=== PATIENT | male | born 1930 | race African-American/Black ===

== ENCOUNTER → 2017-05-17 | Outpatient (CLI) | payer MEDICARE ==
[~2017-05-17] MED LIST: DICYCLOMINE HCL10 MG PO; IOPAMIDOL 370 MG/ML 200 ML INFUS..BTL INJ ONE; LOSARTAN-HCTZ1 EAC1 PO; SODIUM CHLORIDE 0.9% 250ML 500 ML ONE; SODIUM CHLORIDE 0.9% 50ML 50 ML ONE; TAMSULOSIN HCL0.4 MG PO
[2017-05-17 09:10] LABS: CREATININE, SERUM 2.1 mg/dL (0.72-1.25)
--- NOTE | 2017-05-17 13:56 | Diagnostic Imaging Report ---
PROCEDURE: CTA ABD/PEL/BILATERAL LOWER EXT RUNOFF W \T\ W/O CONTRAST COMPARISON:None. INDICATIONS:Peripheral arterery disease TECHNIQUE: Multi-detector CT technology with Dose Reduction was employed. Images were obtained after the administration of 100 cc of Omnipaque 350 intravenously. For optimization of anatomic evaluation, multiplanar and volume rendering reconstructions were performed. Advanced 3-D off-line postprocessing were performed on a dedicated stand-alone workstation under the direct supervision of the interpreting physician. FINDINGS: Abdominal aorta and iliac vessels: Scattered atherosclerotic changes are present throughout the abdominal aorta and bilateral lower extremity runoff. Minimal amount of plaque is noted around the origins of the great vessels. The superior mesenteric, inferior mesenteric, and celiac arteries are patent. 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 The left renal artery is patent. The common, internal, and external iliac arteries are patent bilaterally. Femoral-popliteal vessels: The right common femoral artery is occluded. The right profunda femoral artery is occluded at the origin. Reconstitution of the right profunda femoral artery is visualized from branches of the right internal iliac artery, series 3 image 100. The right superficial femoral artery is occluded from the origin to the abductor canal. Reconstitution of the distal superficial femoral/popliteal artery is noted via circumflex collaterals, series 3 image 184. The left common and profunda femoral arteries are patent. The left superficial femoral artery is occluded from the origin to the distal above the knee popliteal artery, series 3 image 194. Infrapopliteal vessels: The [id number]-[id number] popliteal arteries are patent bilaterally. The anterior tibial, posterior tibial, and peroneal arteries are patent. Patent three vessel runoff is present in the feet bilaterally. Abdominal and Pelvic soft-tissues and organs: Lung bases: No focal consolidation or parenchymal mass. No pleural effusion or pneumothorax. Liver: Normal parenchyma. No focal mass. Biliary: Normal gallbladder. No intrahepatic or extrahepatic biliary duct dilation. Spleen: No splenomegaly. No focal mass. Several coarse calcifications are present in the spleen. Pancreas: Normal enhancement. No pancreatic duct dilation. No focal mass or peripancreatic soft tissue inflammatory changes. Partial fatty replacement of the pancreas. Adrenal Glands: The adrenal glands are prominent bilaterally, without a focal nodule identified. Kidneys: No obstructing calculi, hydronephrosis, or solid mass. Decreased parenchymal perfusion of the anterior distribution of the right kidney. GI: The stomach, small bowel, and colon are unremarkable. No air-fluid levels. Normal appendix. A moderate amount of retained feces limits intraluminal evaluation of the colon. Peritoneum/Retroperitoneum: No pneumoperitoneum or free intraperitoneal fluid. No lymphadenopathy. No drainable fluid collection. Reproductive Organs: Normal. Musculoskeletal: No acute sclerotic or lucent lesion. Degenerative changes of the lumbar spine. 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 Perfusion changes of the anterior distribution of the right kidney, consistent with chronic distal renal artery atherosclerotic disease. Dictated by: Jose Ledezma M.D. on 05/17/2017 at 13:56 Electronically approved by: Jose Ledezma M.D. on 05/17/2017 at 13:56
== END ==
LOC: CT 08:02
PROVIDERS: ATTEND Thoracic Surgery (Cardiothoracic Vascular Surgery)
DX: I73.9 Peripheral vascular disease, unspecified (principal)
CPT/HCPCS: 36415; 75635; 82565; 84520; J7050; Q9967

== ENCOUNTER → 2017-06-01 | Outpatient (CLI) | payer MEDICARE ==
[~2017-06-01] MED LIST changes: -IOPAMIDOL 370 MG/ML 200 ML INFUS..BTL INJ ONE; -SODIUM CHLORIDE 0.9% 250ML 500 ML ONE; -SODIUM CHLORIDE 0.9% 50ML 50 ML ONE
--- NOTE | 2017-06-01 09:10 | Diagnostic Imaging Report ---
PROCEDURE:HAND RIGHT 3 VIEWS TECHNIQUE:AP, lateral and oblique views right hand INDICATION:Right hand pain COMPARISON:None. FINDINGS: Mild interphalangeal joint space narrowing and sclerosis. No erosion or periosteal reaction. Normal bone mineralization. Regional soft tissues are normal. CONCLUSION: Mild osteoarthritic degenerative changes. No acute abnormality. Dictated by: Evangelist Olvera M.D. on 06/01/2017 at 9:08 Electronically approved by: Evangelist Olvera M.D. on 06/01/2017 at 9:08
== END ==
LOC: RAD 08:22
PROVIDERS: ATTEND Family Medicine
DX: M79.641 Pain in right hand (principal)

== ENCOUNTER → 2018-08-09 | Day surgery (SDC) | payer MEDICARE ==
[2018-08-08 17:29] LABS: BASOPHILS # (AUTO) 0.1 (0.0-0.1); BASOPHILS % 0.8 % (0.0-1.0); EOSINOPHILS # (AUTO) 0.4 (0.0-0.4); EOSINOPHILS % 5.3 % (0.0-6.0); HEMATOCRIT 42.3 % (38.2-49.6); HEMOGLOBIN 13.4 g/dL (14.0-18.0); LYMPHOCYTES # (AUTO) 2.8 (1.0-3.2); LYMPHOCYTES % 41.8 % (18.0-39.1); MEAN CORPUSCULAR HEMOGLOBIN 31.2 pg (28-32); MEAN CORPUSCULAR HGB CONC 31.7 g/dL (31-35); MEAN CORPUSCULAR VOLUME 98.4 fL (81-99); MONOCYTES # (AUTO) 0.7 (0.2-0.8); MONOCYTES % 10.6 % (4.4-11.3); NEUTROPHILS # (AUTO) 2.8 (2.1-6.9); NEUTROPHILS % 41.3 % (38.7-80.0); PLATELET COUNT 155 x10e3/uL (140-360)
[2018-08-08 18:33] LABS: EOSINOPHILS % (MANUAL) 8 % (0-7); LYMPHOCYTES % (MANUAL) 44 % (19-48); MONOCYTES % (MANUAL) 7 % (3.4-9.0); NEUTROPHILS % (MANUAL) 41 % (40-74); RBC MORPHOLOGY COMMENT NORMAL
[2018-08-08 18:34] LABS: PLATELET ESTIMATE ADEQUATE; PLATELET MORPHOLOGY COMMENT NORMAL
[~2018-08-09] MED LIST changes: +ATORVASTATIN CA20 MG PO; +BREO ELLIPTA INH; +GABAPENTIN300 MG PO; +HYDRALAZINE HCL 20 MG/ML VIAL ONE; +METOPROLOL TART25 MG PO; +PROPOFOL IV EMULSION 10 MG/ML 20 ML VIAL ONE; +RANITIDINE HCL300 M1 PO; +TERBINAFINE HC250 MG PO
--- OUTSIDE RECORDS SUMMARY | 2018-08-09 07:58 | XMS REPORT ---
Author Author [facility] Address Unknown Phone Unavailable Care Team Providers Care Enforcement Manager Name Role Phone MANJINDER LORENZO Unavailable Unavailable SHEFALI HARDY Unavailable Unavailable Problems This patient has no known problems. Allergies, Adverse Reactions, Alerts This patient has no known allergies or adverse reactions. Medications This patient has no known medications. Results Test Description Test Time Test Comments Text Results Atomic Results Result Comments HAND 3+ VIEWS RIGHT [place] [address] Patient Name: CONNIE PATTON MR #: [id number] : 1930 Age/Sex: 86/M Req #: [id number] [facility] Physician: Ordered by: MANJINDER LORENZO MD Report #: [id number] Location: [facility] Room/Bed: Procedure: [id number] DX/HAND 3+ VIEWS RIGHT Exam Date: 06/01/17 Exam Time: 0845 REPORT STATUS: Signed PROCEDURE: HAND RIGHT 3 VIEWS TECHNIQUE: AP, lateral and oblique views right hand INDICATION: Right hand pain COMPARISON: None. FINDINGS: Mild interphalangeal joint space narrowing and sclerosis. No erosion or periosteal reaction. Normal bone mineralization. Regional soft tissues are normal. CONCLUSION: Mild osteoarthritic degenerative changes. No acute abnormality. Dictated by: Keanu Olvera M.D. on 06/01/2017 at 9:08 Electronically approved by: Keanu Olvera M.D. on 06/01/2017 at 9:08 Dictated By: KEANU OLVERA MD 7 Transcribed By: SAMMY on 06/01/17907 COPY TO: MANJINDER LORENZO MD CTA ABD/PEL/RUN OFF [place] [address] Patient Name: CONNIE PATTON MR #: [id number] : 1930 Age/Sex: 86/M Req #: [id number] Adm Physician: Ordered by: SHEFALI HARDY MD Report #: [id number] Location: CT Room/Bed: Procedure: [id number] CT/CTA ABD/PEL/RUN OFF Exam Date: 05/17/17 Exam Time: 1000 REPORT STATUS: Signed PROCEDURE: CTA ABD/PEL/BILATERAL LOWER EXT RUNOFF W T W/O CONTRAST COMPARISON: None. INDICATIONS: Peripheral arterery disease TECHNIQUE: Multi-detector CT technology with Dose Reduction was employed. Images were obtained after the administration of 100 cc of Omnipaque 350 intravenously. For optimization of anatomic evaluation, multiplanar and volume rendering reconstructions were performed. Advanced 3-D off-line postprocessing were performed on a dedicated stand-alone workstation under the direct supervision of the interpreting physician. FINDINGS: Abdominal aorta and iliac vessels: Scattered atherosclerotic changes are present throughout the abdominal aorta and bilateral lower extremity runoff. Minimal amount of plaque is noted around the origins of the great vessels. The superior mesenteric, inferior mesenteric, and celiac arteries are patent. 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 The left renal artery is patent. The common, internal, and external iliac arteries are patent bilaterally. Femoral- popliteal vessels: The right common femoral artery is occluded. The right profunda femoral artery is occluded at the origin. Reconstitution of the right profunda femoral artery is visualized from branches of the right internal iliac artery, series 3 image 100. The right superficial femoral artery is occluded from the origin to the abductor canal. Reconstitution of the distal superficial femoral/popliteal artery is noted via circumflex collaterals, series 3 image 184. The left common and profunda femoral arteries are patent. The left superficial femoral artery is occluded from the origin to the distal above the knee popliteal artery, series 3 image 194. Infrapopliteal vessels: The [id number]-[id number]-[id number] popliteal arteries are patent bilaterally. The anterior tibial, posterior tibial, and peroneal arteries are patent. Patent three vessel runoff is present in the feet bilaterally. Abdominal and Pelvic soft-tissues and organs: Lung bases: No focal consolidation or parenchymal mass. No pleural effusion or pneumothorax. Liver: Normal parenchyma. No focal mass. Biliary: Normal gallbladder. No intrahepatic or extrahepatic biliary duct dilation. Spleen: No splenomega ly. No focal mass. Several coarse calcifications are present in the spleen. Pancreas: Normal enhancement. No pancreatic duct dilation. No focal mass or peripancreatic soft tissue inflammatory changes. Partial fatty replacement of the pancreas. Adrenal Glands: The adrenal glands are prominent bilaterally, without a focal nodule identified. Kidneys: No obstructing calculi, hydronephrosis, or solid mass. Decreased parenchymal perfusion of the anterior distribution of the right kidney. GI: The stomach, small bowel, and colon are unremarkable. No air-fluid levels. Normal appendix. A moderate amount of retained feces limits intraluminal evaluation of the colon. Peritoneum/Retroperitoneum: No pneumoperitoneum or free intraperitoneal fluid. No lymphadenopathy. No drainable fluid collection. Reproductive Organs: Normal. Musculoskeletal: No acute sclerotic or lucent lesion. Degenerative changes of the lumbar spine. 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 Perfusion changes of the anterior distribution of the right kidney, consistent with chronic distal renal artery atherosclerotic disease. Dictated by: Connie Marino M.D. on 05/17/2017 at 13:56 Electronically approved by: Connie Marino M.D. on 05/17/2017 at 13:56 Dictated By: CONNIE MARINO MD [id number] Transcribed By: SAMMY on 05/17/17 2947 COPY TO: SHEFALI HARDY MD
[2018-08-09 13:12] VITALS: BP 170/83
== END | disposition home or self-care (01) ==
LOC: OR 07:55
PROVIDERS: ATTEND Internal Medicine Gastroenterology
DX: K29.50 Unspecified chronic gastritis without bleeding (principal); K31.1 Adult hypertrophic pyloric stenosis; K21.0 Gastro-esophageal reflux disease with esophagitis; K44.9 Diaphragmatic hernia without obstruction or gangrene; K57.30 Diverticulosis of large intestine without perforation or abscess without bleeding; D64.9 Anemia, unspecified; E66.3 Overweight; Z71.3 Dietary counseling and surveillance; I12.9 Hypertensive chronic kidney disease with stage 1 through stage 4 chronic kidney disease, or unspecified chronic kidney disease; N18.9 Chronic kidney disease, unspecified; E78.5 Hyperlipidemia, unspecified; J45.909 Unspecified asthma, uncomplicated; Z01.810 Encounter for preprocedural cardiovascular examination; Z01.812 Encounter for preprocedural laboratory examination; Z79.82 Long term (current) use of aspirin; Z68.27 Body mass index [BMI] 27.0-27.9, adult; Z87.891 Personal history of nicotine dependence
CPT/HCPCS: 36415; 43239; 43245; 85025; 93005; J0360; J2704; 43450

== ENCOUNTER → 2019-03-28 | Day surgery (SDC) | payer MEDICARE ==
[2019-02-12 09:44] LABS: BASOPHILS % 0.5 % (0.0-1.0); EOSINOPHILS # (AUTO) 0.3 (0.0-0.4); EOSINOPHILS % 5.7 % (0.0-6.0); HEMATOCRIT 39.7 % (38.2-49.6); HEMOGLOBIN 12.6 g/dL (14.0-18.0); LYMPHOCYTES # (AUTO) 2.5 (1.0-3.2); LYMPHOCYTES % 42.1 % (18.0-39.1); MEAN CORPUSCULAR HEMOGLOBIN 31.3 pg (28-32); MEAN CORPUSCULAR HGB CONC 31.7 g/dL (31-35); MEAN CORPUSCULAR VOLUME 98.5 fL (81-99); MONOCYTES # (AUTO) 0.6 (0.2-0.8); MONOCYTES % 9.7 % (4.4-11.3); NEUTROPHILS # (AUTO) 2.5 (2.1-6.9); NEUTROPHILS % 41.8 % (38.7-80.0); PLATELET COUNT 159 x10e3/uL (140-360); RED BLOOD COUNT 4.03 x10e6/uL (4.3-5.7); RED CELL DISTRIBUTION WIDTH 12.7 % (11.7-14.4)
[~2019-03-28] MED LIST changes: -HYDRALAZINE HCL 20 MG/ML VIAL ONE; +HYDROCHLOROTHIA25 MG PO; +KETAMINE HCL INJ 50 MG/ML 10 ML VIAL ONE; +LIDOCAINE HCL 2% LOCAL INJ 5 ML SDV VIAL INJ ONE; +LOSARTAN POTASS25 MG PO; +PANTOPRAZOLE SO40 MG PO
[2019-03-28 10:08] LABS: BASOPHILS % 0.5 % (0.0-1.0); EOSINOPHILS # (AUTO) 0.1 (0.0-0.4); EOSINOPHILS % 2.1 % (0.0-6.0); HEMATOCRIT 40.8 % (38.2-49.6); HEMOGLOBIN 13.2 g/dL (14.0-18.0); LYMPHOCYTES # (AUTO) 2.2 (1.0-3.2); MEAN CORPUSCULAR HEMOGLOBIN 30.8 pg (28-32); MEAN CORPUSCULAR HGB CONC 32.4 g/dL (31-35); MEAN CORPUSCULAR VOLUME 95.1 fL (81-99); MONOCYTES # (AUTO) 0.7 (0.2-0.8); MONOCYTES % 10.5 % (4.4-11.3); NEUTROPHILS # (AUTO) 3.2 (2.1-6.9); NEUTROPHILS % 50.7 % (38.7-80.0); PLATELET COUNT 193 x10e3/uL (140-360); RED BLOOD COUNT 4.29 x10e6/uL (4.3-5.7); RED CELL DISTRIBUTION WIDTH 12.8 % (11.7-14.4)
[2019-03-28 12:10] VITALS: BP 180/86
== END | disposition home or self-care (01) ==
LOC: OR 09:01
PROVIDERS: ATTEND Internal Medicine Gastroenterology
DX: D64.9 Anemia, unspecified (principal); K57.30 Diverticulosis of large intestine without perforation or abscess without bleeding; K64.8 Other hemorrhoids; K21.9 Gastro-esophageal reflux disease without esophagitis; K44.9 Diaphragmatic hernia without obstruction or gangrene; Z71.3 Dietary counseling and surveillance; I10 Essential (primary) hypertension; E66.3 Overweight; J45.909 Unspecified asthma, uncomplicated; Z01.810 Encounter for preprocedural cardiovascular examination; Z01.812 Encounter for preprocedural laboratory examination; Z68.28 Body mass index [BMI] 28.0-28.9, adult
CPT/HCPCS: 36415 ×2; 45378; 85025 ×2; 93005; J2001; J2704

== ENCOUNTER → 2019-10-10 | Outpatient (CLI) | payer MEDICARE ==
[~2019-10-10] MED LIST changes: -KETAMINE HCL INJ 50 MG/ML 10 ML VIAL ONE; -LIDOCAINE HCL 2% LOCAL INJ 5 ML SDV VIAL INJ ONE; -PROPOFOL IV EMULSION 10 MG/ML 20 ML VIAL ONE
--- NOTE | 2019-10-10 19:00 | Diagnostic Imaging Report ---
Solid-phase gastric emptying study Reason for examination: Epigastric pain and bloating The protocol used for this study is based on the Consensus Recommendations for Gastric Scintigraphy by the [place] [employer] and the Society of [employer]. Clinical information: The patient is not diabetic. The patient has not had previous gastrointestinal surgery. The patient is not on any medications expected to affect gastric motility. The patient has been fasting for at least 6 hours prior to this exam. Radiopharmaceutical: Tc-99m sulfur colloid 1 mCi Report: The radiopharmaceutical was added to 1/2 cup egg whites that were then prepared and served with 2 pieces of white bread toasted, 30 grams of jam and 4 ounces of water. The patient took the meal orally without difficulty. Images were obtained of the abdomen in the anterior and posterior projections at 10 minutes post the meal and at 1, 2 and 3 hours. Uptake was determined from the geometric mean of the anterior and posterior counts and the counts were corrected for decay of the radiolabel. The percent gastric retention of the labeled meal at: 1 hour was 38% (normal 30-90%) 2 hours was 8% (normal <60%) 3 hours was 2% (normal <30%) 4 hour measurement not obtained because gastric retention was less than 10% at 3 hours. Impression: The pattern of gastric emptying is normal. The findings do not support the clinical diagnosis of gastroparesis. Signed by: Dr. Jelly Colby M.D. on 10/10/2019 6:57 PM
== END ==
LOC: NM 09:01
PROVIDERS: ATTEND Internal Medicine Gastroenterology
DX: R10.13 Epigastric pain (principal); R14.0 Abdominal distension (gaseous); K21.9 Gastro-esophageal reflux disease without esophagitis; K44.9 Diaphragmatic hernia without obstruction or gangrene; K31.1 Adult hypertrophic pyloric stenosis; K57.30 Diverticulosis of large intestine without perforation or abscess without bleeding; I10 Essential (primary) hypertension; E66.3 Overweight; Z71.3 Dietary counseling and surveillance; Z87.891 Personal history of nicotine dependence
CPT/HCPCS: 78264; A9541

== ENCOUNTER → 2019-12-07 | Outpatient (CLI) | payer MEDICARE, OTHER ==
[2019-12-07 13:17] LABS: BASOPHILS % 0.5 % (0.0-1.0); EOSINOPHILS # (AUTO) 0.3 (0.0-0.4); EOSINOPHILS % 4.4 % (0.0-6.0); HEMATOCRIT 36.9 % (38.2-49.6); HEMOGLOBIN 11.4 g/dL (14.0-18.0); LYMPHOCYTES # (AUTO) 2.6 (1.0-3.2); LYMPHOCYTES % 39.6 % (18.0-39.1); MEAN CORPUSCULAR HEMOGLOBIN 30.4 pg (28-32); MEAN CORPUSCULAR HGB CONC 30.9 g/dL (31-35); MEAN CORPUSCULAR VOLUME 98.4 fL (81-99); MONOCYTES # (AUTO) 0.7 (0.2-0.8); NEUTROPHILS # (AUTO) 2.9 (2.1-6.9); NEUTROPHILS % 44.3 % (38.7-80.0); PLATELET COUNT 178 x10e3/uL (140-360); RED BLOOD COUNT 3.75 x10e6/uL (4.3-5.7); RED CELL DISTRIBUTION WIDTH 12.6 % (11.7-14.4)
== END ==
LOC: DX 14:47 → EDSTATUS 12-12 11:00
PROVIDERS: ATTEND Internal Medicine Gastroenterology
DX: Z01.818 Encounter for other preprocedural examination (principal); K40.90 Unilateral inguinal hernia, without obstruction or gangrene, not specified as recurrent; Z11.59 Encounter for screening for other viral diseases
CPT/HCPCS: 36415; 85025; 93005; U0002

== ENCOUNTER → 2020-07-15 | Outpatient (CLI) | payer MEDICARE ==
[~2020-07-15] MED LIST changes: +IOPAMIDOL 370 MG/ML 200 ML INFUS..BTL INJ ONE; +SODIUM CHLORIDE 0.9% 100 ML ONE; +SODIUM CHLORIDE 0.9% 500ML 500 ML ONE; +SODIUM CHLORIDE 0.9% 50ML 0 ML ONE
[2020-07-15 13:44] LABS: BLOOD UREA NITROGEN 18 mg/dL (7-26); BUN/CREATININE RATIO 8 (6-25); CREATININE, SERUM 2.38 mg/dL (0.72-1.25); EST GLOMERULAR FILTRATION RATE 31 ML/MIN (60-)
[2020-07-15 15:33] LABS: ANION GAP 16.1 mmol/L (8-16); CALCIUM 8.4 mg/dL (8.4-10.2); CREATININE, SERUM 2.15 mg/dL (0.72-1.25); POTASSIUM 4.1 mmol/L (3.5-5.1)
== END ==
LOC: CT 12:52
PROVIDERS: ATTEND Internal Medicine Interventional Cardiology
DX: I73.9 Peripheral vascular disease, unspecified (principal)
CPT/HCPCS: 36415; 75635; 80048; 96360; J7040; J7050; Q9967